=== PATIENT | female | born 1990 | race Caucasian/White ===

== ENCOUNTER → 2017-01-03 | Outpatient (CLI) | payer BC ==
[2017-01-03 09:23] LABS: CH 30.8; CHCM 33.3; HCT 38.2 % (34.0-46.0); HDW 2.85; HGB 12.8 gm/dL (11.4-16.0); MCH 31.1 pg (25.0-35.0); MCHC 33.4 g/dL (31.0-37.0); MCV 93.1 fL (80.0-100.0); Mean Platelet Volume 6.9; RBC 4.11 m/uL (3.80-5.40); RDW 13.5 % (11.5-15.5); WBC 12.4 k/uL (3.8-10.6)
[2017-01-03 10:50] LABS: Hepatitis C Virus IgG Index 0.05
[2017-01-03 10:56] LABS: Hepatitis C Virus IgG Ab Negative (Negative)
== END | disposition home or self-care (01) ==
LOC: LABWHC1 08:03
PROVIDERS: ATTEND Obstetrics & Gynecology
DX: Z34.82 Encounter for supervision of other normal pregnancy, second trimester (principal)
CPT/HCPCS: 36415; 82950; 85027; 86803

== ENCOUNTER → 2017-01-09 | Outpatient (CLI) | payer BC ==
[2017-01-09 13:11] LABS: Glucose 3 Hour, Gest 100 mg/dL
== END | disposition home or self-care (01) ==
LOC: LABWHC1 08:36
PROVIDERS: ATTEND Obstetrics & Gynecology
DX: O99.810 Abnormal glucose complicating pregnancy (principal)
CPT/HCPCS: 36415; 82951; 82952

== ENCOUNTER 2017-03-19 06:20 | Inpatient (IN) | payer BC ==
[2017-03-19] MEDS ORDERED: TERBUTALINE 1 MG/ML VIAL SQ PRN (06:39)
[2017-03-19] MEDS ORDERED: CARBOPROST TROMETHAMINE 250 MCG/ML 1 ML AMP IM PRN (06:39)
[2017-03-19] MEDS ORDERED: LIDOCAINE 1% (PF) 10 MG/ML (30 ML SDV) SQ PRN (06:39)
[2017-03-19] MEDS ORDERED: METHYLERGONOVINE 0.2 MG/ML 1 ML AMP IM PRN (06:39)
[2017-03-19] MEDS ORDERED: OXYTOCIN 10 UNIT/ML 1 ML VIAL IM PRN (06:39)
[2017-03-19] MEDS ORDERED: AMPICILLIN 2,000 MG in SODIUM CHLORIDE 0.9% 100 ML IVPB STA (06:39)
[2017-03-19] MEDS ORDERED: LACTATED RINGERS 1,000 ML IV SCH (06:45)
[2017-03-19 07:18] LABS: Basophils % (A) 0 %; CHCM 35.3; Eosinophils # (A) 0.2 k/uL (0-0.7); Eosinophils % (A) 2 %; HCT 36.8 % (34.0-46.0); HDW 2.99; Luc # (Auto) 0.14; Luc % (Auto) 1; Lymphocytes # (A) 1.2 k/uL (1.0-4.8); Lymphocytes % (A) 9 %; MCH 30.1 pg (25.0-35.0); MCHC 35.2 g/dL (31.0-37.0); MCV 85.4 fL (80.0-100.0); Mean Platelet Volume 7.3; Monocytes # (A) 0.4 k/uL (0-1.0); Monocytes % (A) 3 %; Neutrophils # (A) 11.4 k/uL (1.3-7.7); Neutrophils % (A) 85 %; RBC 4.32 m/uL (3.80-5.40); RDW 13.7 % (11.5-15.5); WBC 13.4 k/uL (3.8-10.6); WBC (Perox) 14.37
--- NOTE | 2017-03-19 09:11 | P.HPOB ---
History of Present Illness H&P Date: 03/19/17 Chief Complaint: Intrauterine at 36 weeks 4 days gestation: Active labor Tariq is a 26-year-old at 36 weeks 4 days gestation arise in active labor. She was dilated to 7 cm at presentation and was 9 cm when artificial rupture membranes was performed. She has a history of GBS positive although she is GBS negative this she did receive 1 dose of antibiotics. She did see MFM for possible small VSD but no other problems with the . 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 Pertinent labs did include A+ blood type Rh antibody was negative. Rubella was immune, hepatitis B's surface antigen was negative as well as her hepatitis C viral and antibody. She did fail a 1 hour Glucola screen but passed her 3 hour Glucola screen. On physical exam vital signs are stable and afebrile. Heart regular, lungs clear, extremities without pain. Abdomen is soft gravid uterus is noted. Pelvic exam as above. heart tones in 140s and reactive. Assessment intrauterine at 36 weeks. Plan expect spontaneous vaginal delivery. Past Medical History Additional Past Medical History / Comment(s): migraines History of Any Multi-Drug Resistant Organisms: None Reported Past Surgical History: Cholecystectomy, Orthopedic Surgery, Tonsillectomy Additional Past Surgical History / Comment(s): rt ankle surgery Past Anesthesia/Blood Transfusion Reactions: Motion Sickness Past Psychological History: Anxiety, Depression Additional Psychological History / Comment(s): not medicated Smoking Status: Former smoker Past Alcohol Use History: None Reported Past Drug Use History: None Reported - Past Family History Mother Family Medical History: Coronary Artery Disease (CAD), Diabetes Mellitus, Hypertension Sister(s) Additional Family Medical History / Comment(s): congenital heart defect Medications and Allergies Home Medications Medication Instructions Recorded Confirmed Type Aspirin [Adult Low Dose Aspirin EC] 81 mg PO DAILY 03/19/17 03/19/17 History Pnv,Calcium 72/Iron/Folic Acid 1 tab PO DAILY 03/19/17 03/19/17 History [ Plus Tablet] Allergies Allergy/AdvReac Type Severity Reaction Status Date / Time codeine Allergy Severe Anaphylaxis Verified 03/19/17 06:29 Exam Osteopathic Statement: *. No significant issues noted on an osteopathic structural exam other than those noted in the History and Physical/Consult. - Vital Signs Vital signs: Vital Signs Temp Pulse Resp BP Pulse Ox 03/19/17 06:43 96.7 F L 82 16 125/76 03/19/17 06:40 97.6 F 82 16 125/76 98 Intake and Output 03/18/17 03/19/17 03/19/17 22:59 06:59 14:59 Other: Weight 106.594 kg Results Result Diagrams: 03/19/17 06:47 Abnormal Lab Results - Last 24 Hours (Table) 03/19/17 Range/Units 06:47 WBC 13.4 H (3.8-10.6) k/uL Neutrophils # 11.4 H (1.3-7.7) k/uL
--- NOTE | 2017-03-19 09:12 | P.PROBDLV ---
Vaginal Delivery Note - . Vaginal Delivery Note: Patient progressed to complete and pushing with spontaneous vaginal delivery of a viable male over an intact perineum. Baby was delivered as I walked into the room. I did allowed to umbilical cord to pulsate for approximately 45 seconds to minutes prior to clamping planning due to premature sure status. Once umbilical cord was clamped and cut in usual fashion nursery personnel was present to assume care. Ascent was then delivered intact and Pitocin was added to the IV. scores were 9 and 9 at one and 5 minutes respectively and the weight is currently pending but both mother and baby currently appear stable.
[2017-03-19] MEDS ORDERED: diphenhydrAMINE 25 MG CAP PO PRN (10:05)
[2017-03-19] MEDS ORDERED: WITCH HAZEL 1 EACH MED..PAD TOPICAL PRN (10:05)
[2017-03-19] MEDS ORDERED: BENZOCAINE SPRAY 57GM TOPICAL PRN (10:05)
[2017-03-19] MEDS ORDERED: ZOLPIDEM 5 MG TAB PO PRN (10:05)
[2017-03-19] MEDS ORDERED: diphenhydrAMINE 50 MG/ML 1 ML VIAL IVP PRN ×2 (10:05)
[2017-03-19] MEDS ORDERED: ACETAMINOPHEN TAB 325 MG TAB PO PRN (10:05)
[2017-03-19] MEDS ORDERED: LANOLIN CREAM 5 GM TUBE TOPICAL PRN (10:05)
[2017-03-19] MEDS ORDERED: diphenhydrAMINE 50 MG CAP PO PRN (10:05)
[2017-03-19] MEDS ORDERED: SIMETHICONE 80 MG CHEWABLE PO PRN (10:05)
[2017-03-19] MEDS ORDERED: HYDROCORTISONE 2.5% RECTAL CREAM 30 GM TUBE RECTAL PRN (10:05)
[2017-03-19] MEDS ORDERED: OXYTOCIN 20 UNITS/1000 ML NS 1,000 ML IV SCH (10:15)
[2017-03-19] MEDS: IBUPROFEN 600 MG TAB PO PRN ×2 (10:43→18:04)
[2017-03-19] MEDS ORDERED: AMPICILLIN 1,000 MG in SODIUM CHLORIDE 0.9% 50 ML IVPB SCH (11:00)
[2017-03-19] MEDS: SENNOSIDES-DOCUSATE SODIUM 1 EACH TAB PO SCH (20:21)
--- NOTE | 2017-03-20 05:50 | P.PNOBGVD ---
Subjective - Subjective Patient reports: Reports appetite normal, Reports voiding normally, Reports pain well controlled, Reports ambulating normally : doing well Objective - Latest Vital Signs Latest vital signs: Vital Signs Temp Pulse Resp BP Pulse Ox 03/20/17 00:00 98.4 F 82 16 109/54 03/19/17 20:00 98.0 F 84 16 114/87 03/19/17 16:00 98.3 F 75 16 116/70 03/19/17 12:00 98.1 F 88 16 125/60 97 03/19/17 11:10 97.4 F L 76 18 133/69 97 03/19/17 10:40 75 17 123/70 03/19/17 10:10 76 18 127/72 03/19/17 09:55 75 17 127/72 03/19/17 09:40 71 16 129/71 03/19/17 09:25 75 18 123/74 03/19/17 09:10 96.9 F L 82 17 131/77 99 03/19/17 06:43 96.7 F L 82 16 125/76 03/19/17 06:40 97.6 F 82 16 125/76 98 Intake and Output 03/19/17 03/19/17 03/20/17 14:59 22:59 06:59 Intake Total 350 Balance 350 Intake: Oral 350 Other: # Voids 1 2 1 - Exam Lungs: bilateral: normal Chest: Normal S1, Normal S2 Extremities: Present: normal Abdomen: Present: normal appearance, soft Uterus: Present: normal, firm - Labs Labs: Abnormal Lab Results - Last 24 Hours (Table) 03/19/17 Range/Units 06:47 WBC 13.4 H (3.8-10.6) k/uL Neutrophils # 11.4 H (1.3-7.7) k/uL Assessment and Plan (1) Vaginal delivery Narrative/Plan: day #1. Patient is resting without complaints. Vital signs are stable she is afebrile. Uterus is firm nontender. She is a normal course. Plan is to continue routine care discharge home tomorrow. Current Visit: Yes Status: Acute Code(s): O80 - ENCOUNTER FOR FULL-TERM UNCOMPLICATED DELIVERY SNOMED Code(s): 548907028
--- NOTE | 2017-03-20 05:56 | P.DS ---
Providers Date of admission: 03/19/17 06:39 Expected date of discharge: 03/21/17 Attending physician: Dion Bellamy Primary care physician: Stated None - Discharge Diagnosis(es) (1) Vaginal delivery Current Visit: Yes Status: Acute Hospital Course: Please see dictated H&P for intimate details of this patient's admission. Brief summary this is a pleasant 26-year-old 3 para 2 female 36-4/7 weeks gestation admitted in active labor. Liver viable male . Please see dictated delivery note. day #2 patient's felt be stable for discharge home follow up with me in 6 weeks. Procedures: Normal spontaneous vaginal delivery. Patient Condition at Discharge: Good Plan - Discharge Summary New Discharge Prescriptions: New Ibuprofen [Motrin] 600 mg PO Q6HR PRN #40 tab PRN Reason: Mild Pain Or Fever >= 100.5 No Action Pnv,Calcium 72/Iron/Folic Acid [ Plus Tablet] 1 tab PO DAILY Aspirin [Adult Low Dose Aspirin EC] 81 mg PO DAILY Discharge Medication List Aspirin [Adult Low Dose Aspirin EC] 81 mg PO DAILY 03/19/17 [History] Pnv,Calcium 72/Iron/Folic Acid [ Plus Tablet] 1 tab PO DAILY 03/19/17 [ History] Ibuprofen [Motrin] 600 mg PO Q6HR PRN #40 tab 03/20/17 [Rx] Follow up Appointment(s)/Referral(s): Dion Bellamy MD [STAFF PHYSICIAN] - 05/01/17 9:15 am Patient Instructions/Handouts: Vaginal Delivery (DC) Activity/Diet/Wound Care/Special Instructions: No intercourse or anything per vagina for 6 weeks. Please call if any fever, chills, excessive vaginal bleeding, and/or abdominal pain. Discharge Disposition: HOME SELF-CARE
[2017-03-20] MEDS: SENNOSIDES-DOCUSATE SODIUM 1 EACH TAB PO SCH ×2 (08:54→23:01)
[2017-03-20] MEDS: IBUPROFEN 600 MG TAB PO PRN ×2 (10:38→23:00)
[2017-03-21 10:10] VITALS: BP 123/76; PULSE 77; RESP 18; TEMP 97.8
[2017-03-21] MEDS: IBUPROFEN 600 MG TAB PO PRN (10:11)
[2017-03-21] MEDS: SENNOSIDES-DOCUSATE SODIUM 1 EACH TAB PO SCH (12:49)
== END 2017-03-21 12:50 | disposition home or self-care (01) | DRG 775 ==
LOC: FBPOP 06:20 → 4FBP 06:39
PROVIDERS: ADMIT Obstetrics & Gynecology; ATTEND Obstetrics & Gynecology
PROC: 10E0XZZ Delivery of Products of Conception, External Approach (ICD-10-PCS; principal; 2017-03-19)
PROC: 10907ZC Drainage of Amniotic Fluid, Therapeutic from Products of Conception, Via Natural or Artificial Opening (ICD-10-PCS; 2017-03-19)
DX: O60.14X0 Preterm labor third trimester with preterm delivery third trimester, not applicable or unspecified (principal); O99.344 Other mental disorders complicating childbirth; F32.9 Major depressive disorder, single episode, unspecified; F41.9 Anxiety disorder, unspecified; O62.3 Precipitate labor; Z88.5 Allergy status to narcotic agent; Z82.49 Family history of ischemic heart disease and other diseases of the circulatory system; Z79.82 Long term (current) use of aspirin; Z83.3 Family history of diabetes mellitus; Z87.891 Personal history of nicotine dependence; Z3A.36 36 weeks gestation of pregnancy; Z37.0 Single live birth; Z82.79 Family history of other congenital malformations, deformations and chromosomal abnormalities; Z86.19 Personal history of other infectious and parasitic diseases; Z86.69 Personal history of other diseases of the nervous system and sense organs; Z90.49 Acquired absence of other specified parts of digestive tract
CPT/HCPCS: 59025; 85025; 88307; 99213

== ENCOUNTER → 2017-11-03 | Outpatient (CLI) | payer BC, OTHER ==
[2017-11-03 16:53] LABS: Basophils % (A) 1 %; Eosinophils # (A) 0.1 k/uL (0-0.7); Eosinophils % (A) 1 %; HCT 46.7 % (34.0-46.0); HGB 15.2 gm/dL (11.4-16.0); Lymphocytes # (A) 2.5 k/uL (1.0-4.8); Lymphocytes % (A) 29 %; MCH 28.9 pg (25.0-35.0); MCHC 32.5 g/dL (31.0-37.0); MCV 88.9 fL (80.0-100.0); Mean Platelet Volume 7.4; Monocytes # (A) 0.3 k/uL (0-1.0); Monocytes % (A) 4 %; Neutrophils # (A) 5.5 k/uL (1.3-7.7); Neutrophils % (A) 64 %; Platelet Count 379 k/uL (150-450); RBC 5.25 m/uL (3.80-5.40); WBC 8.6 k/uL (3.8-10.6)
[2017-11-03 17:04] LABS: ALT 38 U/L (9-52); AST 25 U/L (14-36); Albumin 4.4 g/dL (3.5-5.0); Alkaline Phosphatase 112 U/L (38-126); Anion Gap 16 mmol/L; Blood Urea Nitrogen 10 mg/dL (7-17); Calcium 9.5 mg/dL (8.4-10.2); Carbon Dioxide 24 mmol/L (22-30); Chloride 101 mmol/L (98-107); Glucose 82 mg/dL (74-99); Potassium 3.8 mmol/L (3.5-5.1); Sodium 141 mmol/L (137-145); Total Bilirubin 0.3 mg/dL (0.2-1.3); Total Protein 7.7 g/dL (6.3-8.2)
== END | disposition home or self-care (01) ==
LOC: LABWHC1 15:52
PROVIDERS: ATTEND Nurse Practitioner Family
DX: R11.2 Nausea with vomiting, unspecified (principal); R19.7 Diarrhea, unspecified
CPT/HCPCS: 36415; 80053; 84436; 84443; 85025